=== PATIENT | male | born 1965 | race Caucasian/White ===

== ENCOUNTER 2018-02-23 17:57 | Emergency (ER) | payer OTHER ==
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
[2018-02-23] MEDS ORDERED: CEPHALEXIN 500MG PREPACK#4 BTL TAKEHOME ONE (19:56)
[2018-02-23] MEDS ORDERED: OXYCODONE/APAP 5/325MG PREPACK#4 BTL TAKEHOME ONE (19:56)
[2018-02-23 20:11] VITALS: BP 129/94
== END 2018-02-23 20:36 | disposition home or self-care (01) ==
PROC: 09Q0XZZ Repair Right External Ear, External Approach (ICD-10-PCS; principal; 2018-02-23)
DX: S01.311A Laceration without foreign body of right ear, initial encounter (principal); W22.8XXA Striking against or struck by other objects, initial encounter; Y99.0 Civilian activity done for income or pay; Y93.89 Activity, other specified